=== PATIENT | male | born 1975 | race Native Hawaiian/Other Pacific Islander ===

== ENCOUNTER 2022-11-11 18:43 | Emergency (ER) | payer BC, OTHER ==
[~2022-11-11] VITALS: Ht 177.8 cm; Wt 94.8 kg
[2022-11-11 18:50] VITALS: TEMP 97.5
[2022-11-11 19:17] LABS: PLATELET COUNT 233 K/uL (142-355)
[2022-11-11 19:35] LABS: POTASSIUM 3.9 mmol/L (3.6-5.2)
[2022-11-11 19:47] LABS: PARTIAL THROMBOPLASTIN TIME 27.1 SECONDS (24.5-33.6)
[2022-11-11 21:25] VITALS: BP 129/82
== END 2022-11-11 21:25 | disposition home or self-care (01) ==
LOC: ED 18:43
PROVIDERS: Emergency Medicine
DX: G43.909 Migraine, unspecified, not intractable, without status migrainosus (principal)
CPT/HCPCS: 80053; 84484; 85027; 85610; 85730; 93005; 96374; 96375; 99284; J1170; J2270; J2405